=== PATIENT | female | born 1935 | race Caucasian/White ===

== ENCOUNTER 2017-01-05 14:30 | Emergency (ER) | payer MEDICARE, OTHER, SELFPAY ==
[~2017-01-05] VITALS: Ht 165.1 cm; Wt 71.5 kg
[2017-01-05 14:47] VITALS: BP 139/71
[2017-01-05] MEDS ORDERED: FLUORESCEIN OPHTHALMIC 1 MG STRIP RIGHTEYE ONE (15:30)
[2017-01-05] MEDS ORDERED: PROPARACAINE OPHTH 0.5%, 15ML RIGHTEYE ONE (15:30)
[2017-01-05] MEDS ORDERED: PROPARACAINE OPHTH 0.5%, 15ML ONE (15:35)
[2017-01-05] MEDS ORDERED: FLUORESCEIN OPHTHALMIC 1 MG STRIP ONE (15:35)
== END 2017-01-05 18:43 | disposition home or self-care (01) ==
LOC: ED 16:20
DX: H11.31 Conjunctival hemorrhage, right eye (principal); X58.XXXA Exposure to other specified factors, initial encounter; Y93.9 Activity, unspecified; Y99.8 Other external cause status; Y92.89 Other specified places as the place of occurrence of the external cause
CPT/HCPCS: 96361; 96374; 99283